=== PATIENT | male | born 1995 | race American Indian/Alaskan Native ===

== ENCOUNTER 2020-11-17 12:09 | Emergency (ER) | payer OTHER ==
[~2020-11-17] VITALS: Ht 180.3 cm; Wt 117.9 kg
== END 2020-11-17 14:50 | disposition home or self-care (01) ==
LOC: ED 12:09
DX: R10.11 Right upper quadrant pain (principal); R10.12 Left upper quadrant pain; R07.9 Chest pain, unspecified
CPT/HCPCS: 74177; 80053; 85025; 99285-25; Q9967